=== PATIENT | female | born 1990 ===

== ENCOUNTER 2020-04-19 06:00 | Day surgery (SDC) | payer OTHER ==
[~2020-04-19 06:00] MED LIST: ALLEGRA PO
[2020-04-19] MEDS ORDERED: MORGIDOX100 MG PO (09:55)
[2020-04-19] MEDS ORDERED: Tylenol #3 PO (09:55)
== END 2020-04-19 13:00 | disposition home or self-care (01) ==
LOC: CIR.AMB 06:00
PROVIDERS: ATTEND Obstetrics & Gynecology
DX: D25.0 Submucous leiomyoma of uterus (principal); N84.0 Polyp of corpus uteri; Z20.828 Contact with and (suspected) exposure to other viral communicable diseases

== ENCOUNTER 2023-07-27 09:14 | Outpatient (CLI) | payer OTHER ==
[~2023-07-27 09:14] MED LIST changes: +MORGIDOX100 MG PO; +Tylenol #3 PO
== END 2023-07-27 09:25 | disposition home or self-care (01) ==
LOC: RX STUDY 09:14
PROVIDERS: ATTEND Obstetrics & Gynecology
DX: N80.00 Endometriosis of the uterus, unspecified (principal)

== ENCOUNTER 2024-05-27 09:17 | Outpatient (CLI) | payer OTHER | END 2024-05-27 09:18 | disposition home or self-care (01) | LOC: PRENATAL 09:17 | PROVIDERS: ATTEND Obstetrics & Gynecology Maternal & Fetal Medicine | DX: O36.80X0 Pregnancy with inconclusive fetal viability, not applicable or unspecified (principal); Z36.82 Encounter for antenatal screening for nuchal translucency; Z3A.13 13 weeks gestation of pregnancy ==

== ENCOUNTER 2024-07-22 08:00 | Outpatient (CLI) | payer OTHER | END 2024-07-22 08:01 | disposition home or self-care (01) | LOC: PRENATAL 08:00 | PROVIDERS: ATTEND Obstetrics & Gynecology Maternal & Fetal Medicine | DX: O44.00 Complete placenta previa NOS or without hemorrhage, unspecified trimester (principal); O24.319 Unspecified pre-existing diabetes mellitus in pregnancy, unspecified trimester; O99.280 Endocrine, nutritional and metabolic diseases complicating pregnancy, unspecified trimester; Z3A.21 21 weeks gestation of pregnancy ==

== ENCOUNTER 2024-09-16 09:04 | Outpatient (CLI) | payer OTHER | END 2024-09-16 09:05 | disposition home or self-care (01) | LOC: PRENATAL 09:04 | PROVIDERS: ATTEND Obstetrics & Gynecology Maternal & Fetal Medicine | DX: O26.849 Uterine size-date discrepancy, unspecified trimester (principal); O99.280 Endocrine, nutritional and metabolic diseases complicating pregnancy, unspecified trimester; Z3A.29 29 weeks gestation of pregnancy ==

== ENCOUNTER 2024-10-11 09:34 | Outpatient (CLI) | payer OTHER | END 2024-10-11 09:35 | disposition home or self-care (01) | LOC: PRENATAL 09:34 | PROVIDERS: ATTEND Obstetrics & Gynecology Maternal & Fetal Medicine | DX: O26.849 Uterine size-date discrepancy, unspecified trimester (principal); O36.8199 Decreased fetal movements, unspecified trimester, other fetus; O24.319 Unspecified pre-existing diabetes mellitus in pregnancy, unspecified trimester; Z3A.34 34 weeks gestation of pregnancy ==

== ENCOUNTER → 2024-11-04 09:18 | Outpatient (CLI) | payer OTHER | END | disposition home or self-care (01) | LOC: PRENATAL 09:18 | PROVIDERS: ATTEND Obstetrics & Gynecology Maternal & Fetal Medicine | DX: O26.849 Uterine size-date discrepancy, unspecified trimester (principal); O36.8199 Decreased fetal movements, unspecified trimester, other fetus; O24.319 Unspecified pre-existing diabetes mellitus in pregnancy, unspecified trimester; Z3A.35 35 weeks gestation of pregnancy ==